=== PATIENT | female | born 1995 | race African-American/Black ===

== ENCOUNTER 2017-07-17 08:40 | Emergency (ER) | payer OTHER ==
[~2017-07-17] VITALS: Ht 149.9 cm; Wt 44.0 kg
[2017-07-17 08:42] VITALS: BP 126/78
[2017-07-17] MEDS ORDERED: FERR324T2 PO (08:57)
[2017-07-17] MEDS ORDERED: PREN1TAB11 PO (08:57)
[2017-07-17] MEDS ORDERED: BACT800T5 PO (10:02)
== END 2017-07-17 10:18 | disposition home or self-care (01) ==
LOC: M ED 08:40
DX: N39.0 Urinary tract infection, site not specified (principal); Z88.0 Allergy status to penicillin; Z79.899 Other long term (current) drug therapy